=== PATIENT | female | born 1955 | race African-American/Black ===

== ENCOUNTER 2017-01-13 07:55 | Inpatient (IN) | payer MEDICARE, OTHER ==
[~2017-01-13] VITALS: Ht 167.6 cm; Wt 78.3 kg
[2017-01-13] VITALS (15 sets, daily range): BP systolic 117–230; BP diastolic 55–98; PULSE 71–109; RESP 14–26; TEMP 97.7–98.2; O2SAT 93–100
[2017-01-13] MEDS ORDERED: RESP: ALBUTEROL 2.5 MG/IPRATROPIUM 0.5 MG NEB (PRN) ONE (08:03)
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
[2017-01-13 08:40] LABS: BASOPHIL # 0.1 TH/MM3 (0-0.2); BASOPHIL % 0.7 % (0.0-2.0); EOSINOPHIL # 0.2 TH/MM3 (0-0.4); EOSINOPHIL % 1.9 % (0.0-4.0); HEMATOCRIT 30.6 % (35.0-46.0); HEMO FLAGS DIFF FINAL; LYMPH % 14.1 % (9.0-44.0); LYMPHOCYTE # 1.4 TH/MM3 (1.0-4.8); MEAN CELL VOLUME 89.3 FL (80.0-100.0); MEAN CORPUSCULAR HEMOGLOBIN 28.1 PG (27.0-34.0); MEAN CORPUSCULAR HGB CONC 31.5 % (32.0-36.0); MONO % 4.2 % (0.0-8.0); NEUT % 79.1 % (16.0-70.0); PLATELET COUNT 278 TH/MM3 (150-450); RED BLOOD COUNT 3.43 MIL/MM3 (4.00-5.30); RED CELL DISTRIBUTION WIDTH 15.5 % (11.6-17.2); WHITE BLOOD COUNT 10.1 TH/MM3 (4.0-11.0)
[2017-01-13 08:55] LABS: PROTHROMBIN TIME - PATIENT 11.1 SEC (9.8-11.6)
[2017-01-13 08:56] LABS: APTT (PATIENT) 18.8 SEC (24.3-30.1)
[2017-01-13 08:59] LABS: BICARBONATE 25.9 MEQ/L (21.0-32.0); POTASSIUM 4.2 MEQ/L (3.5-5.1)
--- NOTE | 2017-01-13 09:08 | RADRPT ---
EXAM DATE/TIME: 01/13/2017 08:45 [facility] COMPARISON: No previous studies available for comparison. INDICATIONS : Short of breath. MEDICAL HISTORY : non-responsive SURGICAL HISTORY : non-responsive ENCOUNTER: Initial ACUITY: 1 day PAIN SCORE: Non-responsive. LOCATION: Bilateral chest FINDINGS: There is increased interstitial markings bilaterally. There is prominence of pulmonary vasculature. T he heart size is diffusely enlarged. No significant pleural effusions. The bony structures are grossl y intact. There are no prior studies for comparison. CONCLUSION: Increased bilateral interstitial infiltrates bilaterally suggestive of pulmonary edema. Ganesh Merino MD on January 13, 2017 at 9:05 Board Certified Radiologist. This report was verified electronically.
[2017-01-13] MEDS ORDERED: hydrALAZINE HCL 20 MG/ML VIAL IV PUSH ONE (09:15)
[2017-01-13] MEDS ORDERED: NITROGLYCERIN-DEXTROSE INJ 250 ML IV ONE (09:30)
[2017-01-13 09:32] LABS: BLOOD GAS BASE EXCESS -1.4 mmol/L (-2-2); BLOOD GAS CARBOXYHEMOGLOBIN 1.5 % (0-4); BLOOD GAS HCO3 24 mmol/L (22-26); BLOOD GAS METHEMOGLOBIN 0.8 % (0-2); BLOOD GAS O2 HGB SATURATION 93 % (90-100); BLOOD GAS OXYGEN CONTENT 12.2 Vol % (12.0-20.0); BLOOD GAS PCO2 45 mmHg (38-42); BLOOD GAS PO2 87 mmHG (61-120); BLOOD GAS TOTAL HGB 9.2 G/DL (12.0-16.0); CRITICAL VALUE NO; DRAW SITE RT BRACHIAL; FIO2 35 %; NUMBER OF ARTERIAL PUNCTURES 1; OXYGEN DEVICE BIPAP; TEMP CORR TO 98.6; VENT SETTINGS IPAP 14/EPAP 5
[2017-01-13 09:33] LABS: STAT YES
[2017-01-13] MEDS ORDERED: SODIUM CHLOR 0.9% 1000 ML INJ 1,000 ML IV PRN ×3 (10:31)
[2017-01-13] MEDS ORDERED: ALBUMIN HUMAN 25% 25 GM/100 ML BAGP IV PRN (10:45)
[2017-01-13] MEDS ORDERED: CHLORHEXIDINE GLUCONATE 2 % 1 PACK (2 CLOTHS) TOP PRN (10:45)
[2017-01-13] MEDS ORDERED: MISCELLANEOUS NURSING INFORMATION XX SCH (10:45)
[2017-01-13] MEDS ORDERED: ACETAMINOPHEN 325 MG TAB PO PRN (10:45)
[2017-01-13] MEDS ORDERED: SODIUM CHLORIDE 0.9% FLUSH 10 ML FLUSH IV FLUSH PRN (10:45)
[2017-01-13] MEDS ORDERED: MANNITOL 12.5 GM/50 ML VIAL IV PRN (10:45)
[2017-01-13] MEDS ORDERED: diphenhydrAMINE HCL 25 MG CAP PO PRN (10:45)
[2017-01-13] MEDS ORDERED: ONDANSETRON HCL 4 MG/2 ML VIAL IV PRN (10:45)
[2017-01-13] MEDS ORDERED: DEXTROSE 50% IN WATER 50 ML VIAL(D50) IV PRN (10:45)
[2017-01-13] MEDS ORDERED: GENTAMICIN SULFATE (DIALYSIS USE ONLY) 20 MG/2 ML VIAL IV PRN (10:45)
[2017-01-13] MEDS ORDERED: HEPARIN SODIUM - IV 10,000 UNITS/10 ML VIAL IVF PRN (10:45)
[2017-01-13] MEDS ORDERED: GLUCAGON 1 MG/ML VIAL OTHER PRN (10:45)
[2017-01-13] MEDS ORDERED: NITROGLYCERIN 0.4 MG SL 25 TABS/BTL SL PRN (10:45)
[2017-01-13] MEDS ORDERED: GELATIN 12 MM/7 MM FOAM TOP PRN (10:45)
[2017-01-13] MEDS ORDERED: HEPARIN SODIUM - IV 10,000 UNITS/10 ML VIAL PRN (10:45)
[2017-01-13] MEDS ORDERED: cloNIDine HCL 0.1 MG TAB PO PRN (10:45)
[2017-01-13] MEDS: RESP: ALBUTEROL 2.5 MG/IPRATROPIUM 0.5 MG NEB (SCH) INH ×6 (11:03→23:45)
[2017-01-13] MEDS ORDERED: CYCL1TAB29 PO (11:03)
[2017-01-13] MEDS ORDERED: LINA145C PO (11:03)
[2017-01-13] MEDS ORDERED: GLIP5TAB8 PO (11:03)
[2017-01-13] MEDS ORDERED: SEVEL800 PO (11:03)
[2017-01-13] MEDS ORDERED: ZANT150T2 PO (11:03)
[2017-01-13] MEDS ORDERED: FURO80TA PO (11:03)
[2017-01-13] MEDS ORDERED: FURO1TAB60 PO (11:03)
[2017-01-13] MEDS ORDERED: ATOR20TA15 PO (11:03)
[2017-01-13] MEDS ORDERED: LISI40TA PO (11:03)
[2017-01-13] MEDS ORDERED: AMLO10TA2 PO (11:03)
[2017-01-13] MEDS ORDERED: METO100T PO (11:03)
[2017-01-13] MEDS ORDERED: SILV1CRE20 TOPICAL (11:03)
[2017-01-13] MEDS: PANTOPRAZOLE SODIUM 40 MG VIAL IV SCH (11:08)
[2017-01-13] MEDS: INSULIN NovoLIN REGULAR SUPPLEMENTAL SCALE SQ SCH ×3 (11:49→23:22)
--- NOTE | 2017-01-13 11:49 | EKG ---
Date Performed: 01/13/2017 Time Performed: 08:05:27 PTAGE: 61 years EKG: SINUS TACHYCARDIA POSSIBLE LEFT ATRIAL ENLARGEMENT ABNORMAL RHYTHM ECG NO PREVIOUS TRACING DOCTOR: Amado Hawkins Interpretating Date/Time 01/13/2017 11:47:29
[2017-01-13] MEDS ORDERED: RESP: ALBUTEROL 2.5 MG/IPRATROPIUM 0.5 MG NEB (PRN) INH (12:00)
[2017-01-13] MEDS ORDERED: hydrALAZINE HCL 20 MG/ML VIAL IV PUSH PRN (12:15)
--- NOTE | 2017-01-13 13:04 | MH ---
cc: ABIGAIL SAUCEDO M.D. DATE OF : 1955 DATE OF ADMISSION: 01/13/2017 ADMITTING DIAGNOSIS: HISTORY OF PRESENT ILLNESS: The patient is a 61-year-old female who is visiting from [place] with a past medical history of end-stage renal disease on hemodialysis Saturday, Saturday, Saturday, hypertension, anemia, questionable COPD who presented to [facility] ED earlier today with acute onset shortness of breath started approximately 05:00 a.m. She denies any associated symptoms of chest pain, orthopnea, PND or edema of lower extremities. In addition she denies any nausea, vomiting or abdominal pain. She missed her dialysis last Saturday. She denies any use of oxygen at home. The patient was found to have a saturation in the 80s. On arrival to the ED she was tachycardiac with heart rate of 110, hypertensive with systolic blood pressure of 170s to 200. The patient was subsequently placed on BiPAP 14/5 with 35% FIO2 and her ABG showed pH of 7.34, CO2 45, PAO2 87, bicarb 24, sats of 93%. Her laboratory data is significant for elevated BNP at 1895, creatinine of 11.33 and potassium level of 4.2. Chest x-ray showed bilateral interstitial infiltrates suggestive of a pulmonary edema. In the ED the patient was given bronchodilator treatment, clonidine, and placed on nitroglycerin drip. The nephrology service was notified and planned to undergo hemodialysis. When seen in the ER the patient was off BiPap and is currently on 4 liters oxygen with saturation of 98% and remained hypertensive. PAST MEDICAL HISTORY: 1. The past medical history is significant for end-stage renal disease on hemodialysis Saturday, Saturday, Saturday. 2. Hypertension. 3. Anemia. 4. Diabetes mellitus. PAST SURGICAL HISTORY Eye surgery. ALLERGIES NO KNOWN DRUG ALLERGIES. FAMILY HISTORY Reviewed and noncontributory. SOCIAL HISTORY Nonsmoker, occasional drinker MEDICATIONS Include: 1. Lisinopril. 2. Metoprolol. 3. Amlodipine. 4. Zantac. 5. Lipitor. 6. Lasix. 7. Glipizide. 8. Renvela. REVIEW OF SYSTEMS As per HPI. The rest of the review of systems is unremarkable. PHYSICAL EXAMINATION: The patient is a 61-year-old female lying in bed in mild respiratory distress. Vital signs: Temperature 97.7, pulse of 104, respiratory rate of 18, blood pressure 205/88, saturation 98% on 4 liters oxygen. HEENT: Atraumatic, normocephalic pupil equal round reactive to accommodation, extraocular muscles intact. Conjunctivae pink. Nonicteric sclera. Oral mucosa within normal limits. NECK: Supple. No JVD or adenopathy. No thyromegaly. Trachea midline. CARDIAC: Tachycardiac, normal S1-S2. No murmurs, rubs or gallops noted. PULMONARY: Bilateral air entry with coarse breath sounds. No rales. ABDOMEN: Soft, obese, nontender. Positive bowel sounds. EXTREMITIES: No cyanosis, clubbing or edema. NEUROLOGIC: No focal sensory deficit. LABORATORY DATA Sodium 140, potassium 4.2, chloride 99, CO2 25, BUN 89, creatinine 11.3, glucose 292. Troponin 0.08, BNP 1895, WBC 10, hemoglobin 9.7, hematocrit 30, platelet count 278. INR 1, PT 11, PTT 18.8. Chest x-ray showed pulmonary edema. EKG: Sinus tachycardia with possible left atrial enlargement. IMPRESSION: 1. Respiratory insufficiency. 2. End-stage renal disease on hemodialysis Saturday, Saturday and Saturday. 3. Pulmonary edema. 4. Hypertensive urgency. 5. Anemia. 6. Obesity. 7. Diabetes mellitus. 8. Hyperlipidemia. RECOMMENDATIONS: Monitor neuro status closely and avoid any sedatives. Continue with oxygen. Maintain sats above 92%. Bronchodilator in the form of DuoNeb q4 plus q2 p.r.n. for shortness of breath. Noninvasive positive pressure ventilation, p.r.n. for respiratory distress. Wean off electrolyte drip and resume her home antihypertensive meds. Will restart Lopressor 100 milligrams b.i.d., Amlodipine 10 milligrams daily, and hydralazine 10 milligrams IV q6 hours p.r.n. for systolic blood pressure greater than 160. Obtain 2-D echocardiogram to evaluate LV function and to rule out regional wall motion abnormality. Monitor renal function, I&O and avoid nephrotoxins. Dr. Voss from nephrology service was notified and plan to undergo hemodialysis for fluid overload. Keep n.p.o. for now and place on Protonix 40 mg daily. Of note the patient is on Zantac 150 mg p.o. b.i.d. at home. Monitor CBC for signs of infections which include fever and WBC. Will hold off on antibiotics at this time as there is no evidence of any infectious process. A chest x-ray showed pulmonary edema. Will obtain urinalysis with culture if indicated and panculture if spikes a fever. Monitor CBC. Place on medium scale sliding scale insulin with Accu-Chek q4 hours for glycemic control. GI prophylaxis with Protonix 40 mg daily and DVT prophylaxis with SCDs and heparin subcu. Further recommendations will be based on hospital course. MD SHERIE Rosario/CASIE /12:11 PM /12:53 PM
[2017-01-13] MEDS: METOPROLOL TARTRATE 100 MG TAB PO SCH ×2 (16:55→21:21)
--- NOTE | 2017-01-13 17:17 | PD.CONS ---
HPI Consult Requested By Reason for Consult Noncompliance with dialysis with subsequent development of pulmonary edema. Primary Care Physician No Primary Care Physician History of Present Illness This patient is a 61-year-old Afro-Malagasy female apparently has decided to vacation in this area without making arrangements for dialysis locally and subsequently developed acute shortness of breath presenting to the emergency room with respiratory insufficiency and hypoxia. When questioning the patient why she did not make arrangements she was not forthcoming. Family members apparently have decided to leave without her after admission but someone with apparently come back for her when she is able to be discharged. Review of Systems ROS Limitations: Uncooperative Constitutional: DENIES: Diaphoretic episodes, Fatigue, Fever, Weight gain, Weight loss, Chills, Dizziness, Change in appetite, Night Sweats Cardiovascular: COMPLAINS OF: Dyspnea on Exertion, Lower Extremity Edema, Orthopnea, DENIES: Chest pain, Palpitations, Syncope, PND, Claudication Gastrointestinal: DENIES: Abdominal pain, Black stools, Bloody stools, Constipation, Diarrhea, Nausea, Vomiting, Difficulty Swallowing, Anorexia Musculoskeletal: COMPLAINS OF: Joint pain, DENIES: Muscle aches, Stiffness, Joint Swelling, Back pain, Neck pain Past Family Social History Allergies: Coded Allergies: No Known Allergies (Unverified , 01/13/17) Past Medical History Patient is a very poor historian and not forthcoming. End-stage renal disease with outpatient he will dialysis Saturday. Diabetes mellitus Hypertension Dyslipidemia. Past Surgical History Placement of AV dialysis fistula. Reported Medications Reported Meds & Active Scripts Active Reported Glipizide 5 Mg Tab 5 Mg PO DAILY Take 30 minutes before a meal Metoprolol Tartrate 100 Mg Tab 100 Mg PO BID Amlodipine (Amlodipine Besylate) 10 Mg Tab 10 Mg PO DAILY Lisinopril 40 Mg Tab 40 Mg PO DAILY Linzess (Linaclotide) 145 Mcg Cap 145 Mcg PO DAILY Take 30 minutes before 1st meal of the day Zantac (Ranitidine HCl) 150 Mg Tab 150 Mg PO BID Flexeril (Cyclobenzaprine HCl) 10 Mg Tab 10 Mg PO HS Silvadene Topical (Silver Sulfadiazine) 1 % Cream 1 Applic TOPICAL QID Atorvastatin (Atorvastatin Calcium) 20 Mg Tab 20 Mg PO HS Lasix (Furosemide) 40 Mg Tab 40 Mg PO BID Renvela (Sevelamer Carbonate) 800 Mg Tab 2,400 Mg PO TID Take 3 tablets (800mg) three times a day with meals and 1 tablet (800mg) with snacks Furosemide 80 Mg Tab 80 Mg PO DAILY IN THE AM Active Ordered Medications Current Medications Albuterol/ Ipratropium (Duoneb Neb) 3 ampule STK-MED ONCE .ROUTE ; Start at 08:03; Stop 01/13/17 at 08:04; Status DC Hydralazine HCl 10 mg 10 mg ONCE ONCE IV PUSH ; Start 01/13/17 at 09:15; Stop 01/13/17 at 09:43; Status DC Nitroglycerin/ Dextrose (Nitroglycerin-Dextrose Inj) 250 ml @ 0 mls/hr TITRATE ONCE IV Last administered on 01/13/17 09:30; Start 01/13/17 at 09:30; Stop at 09:31; Status DC Albuterol/ Ipratropium (Duoneb Neb) 1 ampule Q15M INH Last administered on 01/13 11:04; Start 01/13/17 at 10:15; Stop 01/13/17 at 10:31; Status DC Pantoprazole Sodium (Protonix Inj) 40 mg DAILY IV Last administered on 11:08; Start 01/13/17 at 11:00 Albuterol/ Ipratropium (Duoneb Neb) 1 ampule Q4HR NEB INH Last administered on 01/13/17 11:04; Start 01/13/17 at 12:00 Albuterol/ Ipratropium (Duoneb Neb) 1 ampule Q2HR NEB PRN INH WHEEZING; Start 01/13/17 at 12:00 Heparin Sodium (Porcine) (Heparin Inj) 5,000 units Q12HR SQ ; Start 01/13/17 at 21:00 Miscellaneous Information 1 Q361D XX ; Start 01/13/17 at 10:45 Chlorhexidine Gluconate (Chlorhexidine 2% Cloth) 3 pack Taper DAILY@04 TOP ; Start 01/14/17 at 04:00; Stop 01/10/18 at 03:59 Chlorhexidine Gluconate 3 pack 3 pack UNSCH PRN TOP HYGIENIC CARE; Start at 10:45 Sodium Chloride (NS 1000 ml Inj) 1,000 ml @ 0 mls/hr Q0M PRN IV For Prime & Rinse Back; Start 01/13/17 at 10:31 Heparin Sodium (Porcine) 8000 units 8,000 units UNSCH PRN IVF WITH DIALYSIS; Start 01/13/17 at 10:45 Sodium Chloride 1,000 ml @ 200 mls/hr Q5H PRN IV WITH DIALYSIS; Start 01/13/17 at 10:31 Sodium Chloride (NS 1000 ml Inj) 1,000 ml @ 0 mls/hr Q0M PRN IV WITH DIALYSIS; Start 01/13/17 at 10:31 Mannitol (Mannitol Inj) 12.5 gm UNSCH PRN IV WITH DIALYSIS; Start 01/13/17 at 10:45 Albumin Human (Albumin 25% Inj) 25 gm UNSCH PRN IV WITH DIALYSIS; Start at 10:45 Sodium Chloride (NS Flush) 5 ml UNSCH PRN IV FLUSH WITH DIALYSIS; Start at 10:45 Heparin Sodium (Porcine) (Heparin Inj) UNSCH PRN .XX WITH DIALYSIS; Start at 10:45 Gentamicin Sulfate (Gentamicin (Dialysis) Inj) 20 mg UNSCH PRN IV WITH DIALYSIS ; Start 01/13/17 at 10:45 Ondansetron HCl (Zofran Inj) 4 mg UNSCH PRN IV WITH DIALYSIS; Start 01/13/17 at 10:45 Acetaminophen (Tylenol) 650 mg UNSCH PRN PO for headach, pain, temp > 101F; Start 01/13/17 at 10:45 Diphenhydramine HCl (Benadryl) 25 mg UNSCH PRN PO for hives/itching/anaphylaxis ; Start 01/13/17 at 10:45 Nitroglycerin (Nitrostat Sl) 0.4 mg UNSCH PRN SL CHEST PAIN; Start 01/13/17 at 10:45 Clonidine (Catapres) 0.1 mg UNSCH PRN PO for BP > 180/100 X 2 readings Last administered on 01/13/17t 11:08; Start 01/13/17 at 10:45 Gelatin (Gelfoam 12 Mm/7 Mm Top) 1 foam UNSCH PRN TOP SEE LABEL COMMENTS; Start 01/13/17 at 10:45 Dextrose (D50w (Vial) Inj) 50 ml UNSCH PRN IV HYPOGLYCEMIA-SEE COMMENTS; Start 01/13/17 at 10:45 Glucagon (Glucagon Inj) 1 mg UNSCH PRN OTHER HYPOGLYCEMIA-SEE COMMENTS; Start 01/13/17 at 10:45 Insulin Human Regular (NovoLIN R SUPPLEMENTAL SCALE) 1 Q6HR SQ ; Start 01/13/17 at 12:00 Amlodipine Besylate (Norvasc) 10 mg DAILY PO Last administered on 01/13/17 16: 55; Start 01/13/17 at 12:15 Atorvastatin Calcium (Lipitor) 20 mg HS PO ; Start 01/13/17 at 21:00 Metoprolol Tartrate (Lopressor) 100 mg BID PO Last administered on 01/13/17 16 :55; Start 01/13/17 at 12:15 Hydralazine HCl (Apresoline Inj) 10 mg Q6H PRN IV PUSH SYS BP GREATER THAN 160 MMHG; Start 01/13/17 at 12:15 Family History Not obtained from patient. Social History Not obtained from patient. Physical Exam Vital Signs Vital Signs Date Time Temp Pulse Resp B/P Pulse Ox O2 Delivery O2 Flow Rate FiO2 01/13/17 16:57 94 01/13/17 16:56 98.2 94 14 182/79 100 01/13/17 13:50 78 18 162/82 99 Nasal Cannula 4 01/13/17 11:48 104 18 210/92 98 Nasal Cannula 4 01/13/17 11:08 99 35 01/13/17 10:54 95 18 208/91 100 BiPAP 01/13/17 10:00 103 18 230/97 100 BiPAP 01/13/17 08:46 105 20 217/98 97 BiPAP 01/13/17 08:31 94 35 01/13/17 08:09 26 96 CPAP 01/13/17 08:09 97 BiPAP 01/13/17 08:04 97.7 109 18 175/79 93 Nasal Cannula 4 01/13/17 08:04 110 30 94 Nasal Cannula 4 Physical Exam Patient did not appear to be receptive to questions at this time. GENERAL: Not in respiratory distress with completion of dialysis. SKIN: Warm and dry. HEAD: Normocephalic. EYES: No scleral icterus. No injection or drainage. NECK: Supple, trachea midline. No JVD . CARDIOVASCULAR: Regular rate and rhythm without murmurs, gallops, or rubs. RESPIRATORY: Breath sounds equal bilaterally. No accessory muscle use. GASTROINTESTINAL: Abdomen soft, non-tender, nondistended. MUSCULOSKELETAL: No cyanosis, trace edema ankles. BACK: Nontender without obvious deformity. No CVA tenderness. Laboratory Laboratory Tests Test 01/13/17 01/13/17 08:21 09:17 White Blood Count 10.1 Red Blood Count 3.43 Hemoglobin 9.7 Hematocrit 30.6 Mean Corpuscular Volume 89.3 Mean Corpuscular Hemoglobin 28.1 Mean Corpuscular Hemoglobin 31.5 Concent Red Cell Distribution Width 15.5 Platelet Count 278 Mean Platelet Volume 9.4 Neutrophils (%) (Auto) 79.1 Lymphocytes (%) (Auto) 14.1 Monocytes (%) (Auto) 4.2 Eosinophils (%) (Auto) 1.9 Basophils (%) (Auto) 0.7 Neutrophils # (Auto) 8.0 Lymphocytes # (Auto) 1.4 Monocytes # (Auto) 0.4 Eosinophils # (Auto) 0.2 Basophils # (Auto) 0.1 CBC Comment DIFF FINAL Differential Comment Prothrombin Time 11.1 Prothromb Time International 1.0 Ratio Activated Partial 18.8 Thromboplast Time Sodium Level 140 Potassium Level 4.2 Chloride Level 99 Carbon Dioxide Level 25.9 Anion Gap 15 Blood Urea Nitrogen 89 Creatinine 11.33 Estimat Glomerular Filtration 3 Rate Random Glucose 292 Calcium Level 10.1 Total Creatine Kinase 64 Troponin I 0.08 B-Type Natriuretic Peptide 1895 Blood Gas Puncture Site RT BRACHIAL Blood Gas Patient Temperature 98.6 Blood Gas HCO3 24 Blood Gas Base Excess -1.4 Blood Gas Oxygen Saturation 93 Arterial Blood pH 7.34 Arterial Blood Partial 45 Pressure CO2 Arterial Blood Partial 87 Pressure O2 Arterial Blood Oxygen Content 12.2 Arterial Blood 1.5 Carboxyhemoglobin Arterial Blood Methemoglobin 0.8 Blood Gas Hemoglobin 9.2 Oxygen Delivery Device BIPAP Blood Gas Ventilator Setting IPAP 14/EPAP 5 Blood Gas Inspired Oxygen 35 Result Diagram: 01/13/1782001/13/17820 Imaging Current Medications Last 48 hours Impressions Chest X-Ray 01/13/17 08 Signed Impressions: Service Date/Time: Friday, January 13, 2017 08:45 - CONCLUSION: Increased bilateral interstitial infiltrates bilaterally suggestive of pulmonary edema. Ganesh Merino MD Assessment and Plan Problem List: (1) ESRD (end stage renal disease) on dialysis Plan: Patient's volume status has improved with dialysis today. She was counseled regarding need for compliance with dialysis and life- threatening issues I can arise with noncompliance with dialysis but presently she does not appear to be receptive. To keep the patient on schedule Will do a second dialysis session tomorrow with further fluid removal as tolerated. She indicated that she will be going straight home post discharge. Medication should be adjusted for her end-stage renal disease when indicated. Avoid gadolinium. (2) Pulmonary edema Plan: Improved with dialysis. Second session of dialysis tomorrow. (3) Noncompliance of patient with renal dialysis Plan: Counseling occurred as above. Further counseling per her primary high school business teacher post discharge. (4) Hypertension Plan: Continue current hypertensive regimen. (5) Anemia of renal disease Plan: Management per her primary high school business teacher post discharge. Problem Qualifiers (1) Pulmonary edema: Qualified Code: J81.0 - Acute pulmonary edema Jonna Voss MD Jan 13, 2017 17:17
[2017-01-13] MEDS: ATORVASTATIN 20 MG TAB PO SCH (21:21)
[2017-01-13] MEDS: HEPARIN SODIUM - SQ 10,000 UNITS/ML VIAL SQ SCH (21:22)
[2017-01-14] VITALS (14 sets, daily range): BP systolic 125–170; BP diastolic 60–79; PULSE 68–98; RESP 15–22; TEMP 97.9–99; O2SAT 93–100
[2017-01-14] MEDS ORDERED: CHLORHEXIDINE GLUCONATE 2 % 1 PACK (2 CLOTHS) TOP SCH (04:00)
[2017-01-14] MEDS: RESP: ALBUTEROL 2.5 MG/IPRATROPIUM 0.5 MG NEB (SCH) INH ×5 (04:16→21:43)
[2017-01-14 04:44] LABS: AUTOMATED NEUTROPHIL # 4.1 TH/MM3 (1.8-7.7); BASOPHIL % 0.8 % (0.0-2.0); EOSINOPHIL # 0.1 TH/MM3 (0-0.4); HEMATOCRIT 25.4 % (35.0-46.0); HEMO FLAGS DIFF FINAL; LYMPH % 19.9 % (9.0-44.0); LYMPHOCYTE # 1.2 TH/MM3 (1.0-4.8); MEAN CELL VOLUME 88.3 FL (80.0-100.0); MEAN CORPUSCULAR HEMOGLOBIN 28.6 PG (27.0-34.0); MEAN CORPUSCULAR HGB CONC 32.4 % (32.0-36.0); MONO % 10.9 % (0.0-8.0); NEUT % 66.4 % (16.0-70.0); PLATELET COUNT 192 TH/MM3 (150-450); RED BLOOD COUNT 2.88 MIL/MM3 (4.00-5.30); RED CELL DISTRIBUTION WIDTH 15.4 % (11.6-17.2); WHITE BLOOD COUNT 6.1 TH/MM3 (4.0-11.0)
[2017-01-14 05:40] LABS: BICARBONATE 32.1 MEQ/L (21.0-32.0); POTASSIUM 4.8 MEQ/L (3.5-5.1)
[2017-01-14] MEDS: INSULIN NovoLIN REGULAR SUPPLEMENTAL SCALE SQ SCH ×3 (06:00→18:00)
--- NOTE | 2017-01-14 09:47 | HHI.NPPN ---
Subjective History of Present Illness This patient is a 61-year-old Afro-[place] female apparently has decided to vacation in this area without making arrangements for dialysis locally and subsequently developed acute shortness of breath presenting to the emergency room with respiratory insufficiency and hypoxia. When questioning the patient why she did not make arrangements she was not forthcoming. Family members apparently have decided to leave without her after admission but someone with apparently come back for her when she is able to be discharged. Interval History Pt seen during HD today Received HD yesterday with UF of 2L 1.5L set for today. States she is feeling much better. Anxious to go home. States she will be going to [place] today and then home to [place] tomorrow so she can be at her regular HD clinic by Saturday Objective Data Data 01/13/17 01/14/17 19:00 07:00 Intake Total 240 ml Output Total 2300 ml 0 ml Balance -2300 ml 240 ml Intake Oral 240 ml IV Total 0 ml Output Urine Total 0 ml Hemodialysis 2300 ml # Voids 0 Vital Signs Date Time Temp Pulse Resp B/P Pulse Ox O2 Delivery O2 Flow Rate FiO2 01/14/17 08:26 94 21 01/14/17 08:00 99.0 79 20 148/67 94 01/14/17 08:00 79 01/14/17 06:00 78 01/14/17 04:00 80 01/14/17 04:00 98.3 80 16 170/79 96 01/14/17 02:00 68 01/14/17 00:00 98.5 71 15 152/66 96 01/14/17 00:00 71 01/13/17 22:00 71 01/13/17 20:00 92 01/13/17 20:00 98.0 71 15 117/55 97 01/13/17 19:37 100 Nasal Cannula 2.00 01/13/17 18:00 93 01/13/17 16:57 94 01/13/17 16:56 98.2 94 14 182/79 100 01/13/17 13:50 78 18 162/82 99 Nasal Cannula 4 01/13/17 11:48 104 18 210/92 98 Nasal Cannula 4 01/13/17 11:08 99 35 01/13/17 10:54 95 18 208/91 100 BiPAP 01/13/17 10:00 103 18 230/97 100 BiPAP -: 01/14/17 0333 01/14/17 0333 Imaging Last Impressions Chest X-Ray 01/13/17 0805 Signed Impressions: Service Date/Time: Friday, January 13, 2017 08:45 - CONCLUSION: Increased bilateral interstitial infiltrates bilaterally suggestive of pulmonary edema. Ganesh Merino MD Medication Review Current Medications Medications (Trade) Dose Ordered Sig/Alycia Route Start Time Stop Time Status Last Admin (Protonix Inj) 40 mg DAILY IV 01/13/17 11:00 01/13/17 11:08 (Heparin Inj) 5,000 units Q12HR SQ 01/13/17 21:00 01/13/17 21:22 Miscellaneous Information 1 Q361D XX 01/13/17 10:45 01/13/17 10:45 (Chlorhexidine 2% Cloth) 3 pack Taper DAILY@04 TOP 01/14/17 04:00 01/10/18 03:59 01/13/17 21:22 Chlorhexidine Gluconate 3 pack 3 pack UNSCH PRN TOP 01/13/17 10:45 (NS 1000 ml Inj) 1,000 ml @ 0 mls/hr Q0M PRN IV 01/13/17 10:31 Heparin Sodium (Porcine) 8000 units 8,000 units UNSCH PRN IVF 01/13/17 10:45 Sodium Chloride 1,000 ml @ 200 mls/hr Q5H PRN IV 01/13/17 10:31 (NS 1000 ml Inj) 1,000 ml @ 0 mls/hr Q0M PRN IV 01/13/17 10:31 (Mannitol Inj) 12.5 gm UNSCH PRN IV 01/13/17 10:45 (Albumin 25% Inj) 25 gm UNSCH PRN IV 01/13/17 10:45 (NS Flush) 5 ml UNSCH PRN IV FLUSH 01/13/17 10:45 (Heparin Inj) UNSCH PRN .XX 01/13/17 10:45 (Gentamicin (Dialysis) Inj) 20 mg UNSCH PRN IV 01/13/17 10:45 (Zofran Inj) 4 mg UNSCH PRN IV 01/13/17 10:45 (Tylenol) 650 mg UNSCH PRN PO 01/13/17 10:45 (Benadryl) 25 mg UNSCH PRN PO 01/13/17 10:45 (Nitrostat Sl) 0.4 mg UNSCH PRN SL 01/13/17 10:45 (Catapres) 0.1 mg UNSCH PRN PO 01/13/17 10:45 01/13/17 11:08 (Gelfoam 12 Mm/7 Mm Top) 1 foam UNSCH PRN TOP 01/13/17 10:45 (D50w (Vial) Inj) 50 ml UNSCH PRN IV 01/13/17 10:45 (Glucagon Inj) 1 mg UNSCH PRN OTHER 01/13/17 10:45 (NovoLIN R SUPPLEMENTAL SCALE) 1 Q6HR SQ 01/13/17 12:00 (Norvasc) 10 mg DAILY PO 01/13/17 12:15 01/13/17 16:55 (Lipitor) 20 mg HS PO 01/13/17 21:00 01/13/17 21:21 (Lopressor) 100 mg BID PO 01/13/17 12:15 01/13/17 21:21 (Apresoline Inj) 10 mg Q6H PRN IV PUSH 01/13/17 12:15 Physical Exam General Appearance: No Acute Distress, Comfortable Pulmonary Resp Exam: Clear Bilaterally, Breath Sounds Equal, No Distress Cardiology CV Exam: Regular, Normal Sinus Rhythm, Good Perfusion Gastrointestinal/Abdomen GI Exam: Soft, Non-Tender Extremeties Extremities Exam: No Edema Neurologic Neuro Exam: Alert, Awake Psychiatric Psych Exam: Appropriate Responses Assessment/Plan Problem List: (1) ESRD (end stage renal disease) on dialysis Plan: Pt seen during HD today. Volume status much improved and she indicated she was feeling much better. She was counseled regarding need for compliance with dialysis and life- threatening issues I can arise with noncompliance with dialysis but presently she does not appear to be receptive. OK to be discharged today after HD from renal standpoint. Medication should be adjusted for her end-stage renal disease when indicated. Avoid gadolinium. (2) Pulmonary edema Plan: Improved with HD (3) Noncompliance of patient with renal dialysis Plan: Counseling occurred as above. Further counseling per her primary liquid loader post discharge. (4) Hypertension Plan: Continue current hypertensive regimen. (5) Anemia of renal disease Plan: Management per her primary liquid loader post discharge. Problem Qualifiers (1) Pulmonary edema: Qualified Code: J81.0 - Acute pulmonary edema Tobin,Ashley Annabella PA Jan 14, 2017 09:47
[2017-01-14] MEDS: HEPARIN SODIUM - SQ 10,000 UNITS/ML VIAL SQ SCH ×2 (12:53→20:07)
[2017-01-14] MEDS: PANTOPRAZOLE SODIUM 40 MG VIAL IV SCH (12:53)
[2017-01-14] MEDS: METOPROLOL TARTRATE 100 MG TAB PO SCH ×2 (12:54→20:07)
[2017-01-14] MEDS: ATORVASTATIN 20 MG TAB PO SCH (20:07)
== END 2017-01-14 23:00 | disposition left against medical advice (07) | DRG 640 ==
LOC: NEPE 07:55 → NEDA 10:08 → HIME 16:40
PROVIDERS: ADMIT Internal Medicine; ATTEND Internal Medicine
PROC: 5A09357 Assistance with Respiratory Ventilation, Less than 24 Consecutive Hours, Continuous Positive Airway Pressure (ICD-10-PCS; principal; 2017-01-13)
PROC: 5A1D60Z (ICD-10-PCS; 2017-01-13)
DX: E87.79 Other fluid overload (principal); J81.0 Acute pulmonary edema; I12.0 Hypertensive chronic kidney disease with stage 5 chronic kidney disease or end stage renal disease; N18.6 End stage renal disease; E11.22 Type 2 diabetes mellitus with diabetic chronic kidney disease; Z91.15 Patient's noncompliance with renal dialysis; Z99.2 Dependence on renal dialysis; I16.0 Hypertensive urgency; E78.5 Hyperlipidemia, unspecified; E66.9 Obesity, unspecified; Z68.27 Body mass index [BMI] 27.0-27.9, adult; D63.1 Anemia in chronic kidney disease; J44.9 Chronic obstructive pulmonary disease, unspecified
CPT/HCPCS: 36600; 71010; 80048; 80074; 82550; 82805; 83880; 84484; 85025; 85610; 85730; 87641; 90935; 93005; 94002; 94640; 94664; C9113; J1644